=== PATIENT | male | born 1975 | race Hispanic/Latino ===

== ENCOUNTER → 2018-01-06 | Outpatient (CLI) | payer OTHER ==
--- NOTE | 2018-01-06 15:32 | Diagnostic Imaging Report ---
PROCEDURE:US RETROPERITONEAL ( KIDNEY ). COMPARISON:None. INDICATIONS:ACUTE CYSTITIS W/O HEMATURIA TECHNIQUE: Pelletier-scale and color sonographic images of the bilateral kidneys and bladder where obtained in transverse and longitudinal planes. FINDINGS: RIGHT KIDNEY: 11.7 x 6.4 x 5.4 cm, cortex 1.9 cm Cysts: None Solid masses: None Stones: None Hydronephrosis: None Echogenicity: Normal LEFT KIDNEY: 12.5 x 6.1 x 5.6 cm, cortex 2 cm Cysts: None Solid masses: None Stones: None Hydronephrosis: None Echogenicity: Normal Bladder: Both ureteral jets visualized. Unremarkable. CONCLUSION: Normal renal ultrasound exam. Dictated by: Darian Giles M.D. on 01/06/2018 at 15:32 Electronically approved by: Darian Giles M.D. on 01/06/2018 at 15:32
== END ==
LOC: US 12:05
PROVIDERS: ATTEND Family Medicine
DX: N30.00 Acute cystitis without hematuria (principal)
CPT/HCPCS: 76770

== ENCOUNTER 2020-06-04 18:07 | Emergency (ER) | payer BC, OTHER ==
[~2020-06-04] VITALS: Ht 177.8 cm; Wt 124.7 kg
--- NOTE | 2020-06-04 18:47 | Emergency Department Note ---
History of Present Illnes History of Present Illness Chief Complaint: General Medicine Complaints History of Present Illness This is a 45 year old male with right facial droop and tingling sensation since this am, denies weakness any where else . Historian: Patient Arrival Mode: Car Onset (how long ago): hour(s) (12) Location: right face Quality: weakness, tingling right face Radiation: Reports non-radiation Severity: mild Onset quality: sudden Duration (how long): hour(s) (12) Timing of current episode: constant Progression: unchanged Chronicity: new Context: Denies recent illness, Denies recent surgery, Denies trauma/injury Relieving factors: none Exacerbating factors: none Associated symptoms: Reports denies other symptoms Treatments prior to arrival: none Past Medical/Family History Physician Review I have reviewed the patient's past medical and family history. Any updates have been documented here. Past Medical History Recent Fever: No Clinical Suspicion of Infectio: No New/Unexplained Change in Ment: No Past Medical History: GERD Past Surgical History: Cholecysctectomy Other Surgery: gastric bypass Social History Smoking Cessation: Never Smoker Alcohol Use: Occasional Any Illegal Drug Use: No Physically hurt or threatened: No Family History Family history of heart diseas: No Review of Systems Review of Systems Constitutional: Reports no symptoms EENTM: Reports no symptoms Cardiovascular: Reports no symptoms Respiratory: Reports no symptoms Gastrointestinal: Reports no symptoms Genitourinary: Reports no symptoms Musculoskeletal: Reports no symptoms Integumentary: Reports no symptoms Neurological: Reports as per HPI Psychological: Reports no symptoms Endocrine: Reports no symptoms Hematological/Lymphatic: Reports no symptoms Physical Exam Related Data Allergies: Coded Allergies: No Known Drug Allergies (Verified Allergy, Mild, 12/24/09) Triage Vital Signs Vital Signs Date Time Temp Pulse Resp B/P (MAP) Pulse Ox O2 Delivery O2 Flow Rate FiO2 06/04/20 18:27 98.6 78 17 107/89 98 Room Air Vital signs reviewed: Yes Physical Exam CONSTITUTIONAL Constitutional: Present well-developed, Present well-nourished HENT HENT: Present normocephalic, Present atraumatic, Present oropharynx clear/moist, Present nose normal HENT L/R: Present left ext ear normal, Present right ext ear normal EYES Eyes: Reports PERRL, Reports conjunctivae normal NECK Neck: Present ROM normal PULMONARY Pulmonary: Present effort normal, Present breath sounds normal CARDIOVASCULAR Cardiovascular: Present regular rhythm, Present heart sounds normal, Present capillary refill normal, Present normal rate GASTROINTESTINAL Abdominal: Present soft, Present nontender, Present bowel sounds normal GENITOURINARY Genitourinary: Present exam deferred SKIN Skin: Present warm, Present dry MUSCULOSKELETAL Musculoskeletal: Present ROM normal NEUROLOGICAL Neurological: Present alert, Present oriented x 3, Present DTRs normal, Present cranial nerve deficit (right 7 th nerve, right facial palsey, forehead involved); Absent sensory deficit, Absent abnormal DTRs, Absent abnormal coordination, Absent abnormal gait PSYCHOLOGICAL Psychological: Present mood/affect normal, Present judgement normal Results Imaging Imaging results reviewed: Yes Impressions Procedure: [id number] CT/CT BRAIN WO Exam Date: 06/04/20 Exam Time: 1858 REPORT STATUS: Signed EXAMINATION: Head CT without contrast. HISTORY:Left facial droop and tingling. COMPARISON:None. TECHNIQUE: Multidetector axial images were obtained from the foramen magnum to the vertex without contrast. The images were reconstructed using brain and bone algorithms. Thin section brain images were reformatted into coronal and sagittal planes. Dose modulation, iterative reconstruction, and/or weight based adjustment of the mA/kV was utilized to reduce the radiation dose to as low as reasonably achievable. Intravenous contrast: None IMAGE QUALITY: Acceptable. FINDINGS: Skull/scalp: No lytic or blastic. lesions. No surgical changes. Parenchyma: No abnormal density. No acute hemorrhage, mass or acute major vascular territorial infarct. Arteries: No density suggestive of thrombosis. Dural sinuses: No abnormal density suggestive of thrombosis. Ventricles: No hydrocephalus or displacement. Extra-axial spaces: No abnormal density. Brain volume: Mild generalized cerebral volume loss. Craniocervical junction: No mass, Chiari malformation, or basilar invagination. Sella: No mass. Paranasal/mastoid sinuses: Imaged portions unremarkable. IMPRESSION: No acute intracranial abnormality. Mild generalized cerebral volume loss, advanced for patient's given age. Signed by: Dr. Gladys Duarte M.D. on 06/04/2020 7:43 PM Dictated By: GLADYS DUARTE MD 42 Transcribed By: GERARDO on 06/04/201942 COPY TO: DAVID GAN MD~ Assessment & Plan Medical Decision Making MDM pt with right facial droop since this am, forehead involved has apparent richmond's palsy ct brain ordered to eval for intracranial abnormality. pt discharged with valtrex 1000 mg po tid #21, medrol dose yodit as directed Assessment & Plan Final Impression: (1) Richmond palsy Depart Disposition: HOME, SELF-CARE Last Vital Signs Date Time Temp Pulse Resp B/P (MAP) Pulse Ox O2 Delivery O2 Flow Rate FiO2 06/04/20 18:27 98.6 78 17 107/89 98 Room Air DAVID GAN MD Jun 04, 2020 18:47
--- NOTE | 2020-06-04 19:46 | Diagnostic Imaging Report ---
EXAMINATION: Head CT without contrast. HISTORY:Left facial droop and tingling. COMPARISON:None. TECHNIQUE: Multidetector axial images were obtained from the foramen magnum to the vertex without contrast. The images were reconstructed using brain and bone algorithms. Thin section brain images were reformatted into coronal and sagittal planes. Dose modulation, iterative reconstruction, and/or weight based adjustment of the mA/kV was utilized to reduce the radiation dose to as low as reasonably achievable. Intravenous contrast: None IMAGE QUALITY: Acceptable. FINDINGS: Skull/scalp: No lytic or blastic. lesions. No surgical changes. Parenchyma: No abnormal density. No acute hemorrhage, mass or acute major vascular territorial infarct. Arteries: No density suggestive of thrombosis. Dural sinuses: No abnormal density suggestive of thrombosis. Ventricles: No hydrocephalus or displacement. Extra-axial spaces: No abnormal density. Brain volume: Mild generalized cerebral volume loss. Craniocervical junction: No mass, Chiari malformation, or basilar invagination. Sella: No mass. Paranasal/mastoid sinuses: Imaged portions unremarkable. IMPRESSION: No acute intracranial abnormality. Mild generalized cerebral volume loss, advanced for patient's given age. Signed by: Dr. Gladys Duarte M.D. on 06/04/2020 7:43 PM
[2020-06-04 19:52] VITALS: BP 123/82
--- OUTSIDE RECORDS SUMMARY | 2020-06-04 20:27 | XMS REPORT | Summary of Care ---
Author Author [facility] gina Organization [facility] Address Unknown Phone Unavailable Encounter HQ Arliner_vero(FIN) [id number] Date(s): 04/11/20 - 04/11/20 [facility] [place] [address] [place] [address]- Discharge Disposition: Home or Self Care Attending Physician: Luciano Allen MD Vital Signs No data available for this section Problem List Condition Effective Dates Status Health Status Informan t Anxiety(Confirmed) Resolved Back pain(Confirmed) Resolved BPH with urinary Active obstruction(Confirme d) UTI (urinary tract Resolved infection)(Confirmed ) Allergies, Adverse Reactions, Alerts Substance Reaction Severity Status busPIRone Active Medications No data available for this section Results No data available for this section Immunizations No data available for this section Procedures No data available for this section Social History Social History Type Response Alcohol Current Smoking Status Never smoker; Exposure to T obacco Smoke Unable to obtain; Cigarette Smoking Last 365 Days No; Reg Smoking Cessation Counseling No entered on: 03/24/20 Assessment and Plan No data available for this section
--- OUTSIDE RECORDS SUMMARY | 2020-06-04 20:27 | XMS REPORT | Continuity of Care Document ---
Author Author [facility] [employer] Address Unknown Phone Unavailable Care Team Providers Care Stuffed Casing Tier Name Role Phone Blink Messenger Information [employer] Unavailable Un available Problems Problem Status Onset Date Classification Date Reported Comments Source Anesthesia of skin 02/26/2019 02/28/2019 [facility] Hypo-osmolality and hyponatremia 02/26/2019 02/28/2019 [facility] Hypokalemia 02/26/2019 02/28/2019 [facility] FACIAL WEAKNESS/NUMBNESS Active 02/25/2019 [facility] N39.0 - URINARY TRACT INFECTION, SITE Active 01/30/2018 [facility] [place] Anxiety (finding) Resolved Problem 05/05/2020 [facility] Backache (finding) Resolved Problem 05/05/2020 [facility] Benign prostatic hypertroph with outflow obstruction (disorder) Active Prob richi 05/05/2020 [facility] Urinary tract infectious disease (disorder) Resolved Problem 05/05/2020 [facility] Medications Medication Details Route Status Patient Instructions Ordering Provider Order Date Source Cefuroxime 500 MG Oral Tablet [Ceftin] 500 mg = 1 tab, PO, BID, X 10 day, # 20 tab, 0 Refill(s), Pharmacy: [facility]/pharmacy #[id number], 170.18, cm, 12/22/18 10:09:00 FITTER ARMAMENT, Height, 140.909, kg, 02/25/19 19:26:00 CDT, Weight Active 05/02/2020 Medical [facility] Amoxicillin 500 MG / Clavulanate 125 MG Oral Tablet 1 tab, PO, BID, X 5 day, # 10 tab, 0 Refill(s), Pharmacy: [facility]/pharmacy #[id number], 170.18, cm, 12/22/18 10:09:00 [facility]TER ARMAMENT, Height, 140.909, kg, 02/25/19 19:26:00 CDT, Weight Active 04/16/2020 [facility] tamsulosin 0.4 mg oral capsule = 1 cap, PO, Daily, # 90 cap, 3 Refill(s), Pharmacy: [facility]/pharmacy #[id number] Active 03/24/2020 [facility] tamsulosin 0.4 mg oral capsule = 1 cap, PO, Daily, # 90 unknown unit, Refill(s) 2, [id number] Active 04/20/2019 [facility] Potassium Chloride 1.33 MEQ/ML Oral Solution Notes: (Same as: Potassium Chloride) Inactive 02/26/2019 [facility] nt Isolyte S PH-7.4 (Bolus) IV 1, 000 mL, Route: IV, ONCE, Dosing Weight 140.909 kg, Start date: 02/25/19 22:38:00 CDT, Stop date: 02/25/19 22:38:00 CDT Inactive 02/26/2019 [facility] Ondansetron 4 mg, Route: IVP, Drug form: INJ, ONCE, Dosing Weight 140.909, kg, Priority: STAT, Start date: 02/25/19 21:21:00 CDT, Stop date: 02/25/19 21:21:00 CDT Inactive 02/26/2019 [facility] nt Ativan 2 mg, Route: PO, Drug f orm: TAB, ONCE, Dosing Weight 140.909, kg, Priority: STAT, Start date: 02/25/19 21:19:00 CDT, Stop date: 02/25/19 21:19:00 CDT Inactive 02/26/2019 [facility] nter potassium phosphate-sodium phosphate 250 mg-280 mg-160 mg oral powder for reconstitution Notes: (Same as: Phos-NaK) Each 1.5 gm pkt has 250mg phosphorous. Mix w/2.5oz water and stir. Inactive 02/26/2019 [facility] Isolyte S PH-7.4 (Bolus) IV No charly: (Same as: Isolyte S PH 7.4) Inactive 02/26/2019 [facility] Magnesium Sulfate 2 gm, Route: IV, ONCE, Dosing Weight 140.909, kg, Priority: STAT, Start date: 02/25/19 21:15:00 CDT, Stop date: 02/25/19 21:15:00 CDT Inactive 02/26/2019 [facility] Potassium Chloride 1.33 MEQ/ML Oral Solution Notes: (Same as: Potassium Chloride) Inactive 02/26/2019 [facility] nter Isolyte S PH-7.4 (Bolus) IV No charly: (Same as: Isolyte S PH 7.4) Inactive 02/26/2019 [facility] Allergies, Adverse Reactions, Alerts Substance Category Reaction Severity Reaction type Status Date Reported Comments Source busPIRone Assertion Drug allergy Active [facility] Immunizations No Data Provided for This Section Results Order Name Results Value Reference Range Date Interpretation Comments Source URINE AND STOOL POC UA Color Yellow *NA* (05/02/20 8:45 AM) Yellow 05/02/2020 [facility] URINE AND STOOL POC UA Turbidity Clear *NA* (05/02/20 8:45 AM) Clear 05/02/2020 [facility] URINE AND STOOL POC UA SG 1.020 <=1.030 05/02/2020 [facility] URINE AND STOOL POC UA pH 5.0 5.0 - 8.0 05/02/2020 [facility] URINE AND STOOL POC UA Prot Negative mg/dL Negative mg/dL 05/02/2020 [facility] URINE AND STOOL POC UA Glu 100 mg/dL Negative mg/dL 05/02/2020 [facility] URINE AND STOOL POC UA Ket Negative mg/dL Negative mg/dL 05/02/2020 [facility] URINE AND STOOL POC UA Bili Negative *NA* (05/02/20 8:45 AM) Negative 05/02/2020 [facility] URINE AND STOOL POC UA Bld Small *ABN* (05/02/20 8:45 AM) Negative 05/02/2020 [facility] URINE AND STOOL POC UA Uro 0.2 0.1 - 1.0 05/02/2020 [facility] URINE AND STOOL POC UA Nit Positive *ABN* (05/02/20 8:45 AM) Negative 05/02/2020 [facility] URINE AND STOOL POC UA LeukEst Large *ABN* (05/02/20 8:45 AM) Negative 05/02/2020 [facility] URINE AND STOOL POC UA Color Yellow *NA* (03/24/20 3:35 PM) Yellow 03/24/2020 [facility] URINE AND STOOL POC UA Turbidity Clear *NA* (03/24/20 3:35 PM) Clear 03/24/2020 [facility] URINE AND STOOL POC UA SG <=1.005 *NA* (03/24/20 3:35 PM) <=1.030 03/24/2020 [facility] URINE AND STOOL POC UA pH 7.0 5.0 - 8.0 03/24/2020 [facility] URINE AND STOOL POC UA Prot Negative mg/dL Negative mg/dL 03/24/2020 [facility] URINE AND STOOL POC UA Glu Negative mg/dL Negative mg/dL 03/24/2020 [facility] URINE AND STOOL POC UA Ket Negative mg/dL Negative mg/dL 03/24/2020 [facility] URINE AND STOOL POC UA Bili Negative *NA* (03/24/20 3:35 PM) Negative 03/24/2020 [facility] URINE AND STOOL POC UA Bld Negative *NA* (03/24/20 3:35 PM) Negative 03/24/2020 [facility] URINE AND STOOL POC UA Uro 0.2 0.1 - 1.0 03/24/2020 [facility] URINE AND STOOL POC UA Nit Positive *ABN* (03/24/20 3:35 PM) Negative 03/24/2020 [facility] URINE AND STOOL POC UA LeukEst Moderate *ABN* (03/24/20 3:35 PM) Negative 03/24/2020 [facility] ELECTROLYTES Potassium Lvl 3.3 3.5 - 5.1 02/26/2019 [facility] ELECTROLYTES Chloride Lvl 96 95 - 109 02/26/2019 [facility] ELECTROLYTES Sodium Lvl 132 135 - 145 02/26/2019 [facility] ELECTROLYTES Calcium Lvl 7.6 8.5 - 10.5 02/26/2019 [facility] ELECTROLYTES AGAP 14.3 10.0 - 20.0 02/26/2019 [facility] ELECTROLYTES CO2 25 24 - 32 02/26/2019 [facility] ELECTROLYTES eGFR 119 02/26/2019 Result Comment: The eGFR is calculated using the CKD-EPI formula. In most young, healthy individuals the eGFR will be >90 mL/min/1.73m2. The eGFR declines with age. An eGFR of 60-89 may be normal in some populations, particularly the elderly, for whom the CKD-EPI formula has not been extensively validated. Use of the eGFR is not recommended in the following populations:

Individuals with unstable creatinine concentrations, including patients and those with serious co-morbid conditions.

Patients with extremes in muscle mass or diet.

The data above are obtained from the National Kidney Disease Education Program (NKDEP) which additionally recommends that when the eGFR is used in patients with extremes of body mass index for purposes of drug dosing, the eGFR should be multiplied by the estimated BMI. [facility] ELECTROLYTES Glucose Lvl 110 70 - 99 02/26/2019 [facility] ELECTROLYTES BUN 6 7 - 22 02/26/2019 [facility] ELECTROLYTES Creatinine Lvl 0.6 3 0.50 - 1.40 02/26/2019 [facility] CHEM PANEL eGFR 110 02/26/2019 Result Comment: The eGFR is calculated using the CKD-EPI formula. In most young, healthy individuals the eGFR will be >90 mL/min/1.73m2. The eGFR declines with age. An eGFR of 60-89 may be normal in some populations, particularly the elderly, for whom the CKD-EPI formula has not been extensively validated. Use of the eGFR is not recommended in the following populations:

Individuals with unstable creatinine concentrations, including patients and those with serious co-morbid conditions.

Patients with extremes in muscle mass or diet.

The data above are obtained from the National Kidney Disease Education Program (NKDEP) which additionally recommends that when the eGFR is used in patients with extremes of body mass index for purposes of drug dosing, the eGFR should be multiplied by the estimated BMI. [facility] CHEM PANEL AGAP 16.4 10.0 - 20.0 02/26/2019 [facility] CHEM PANEL Potassium Lvl 3.4 3.5 - 5.1 02/26/2019 [facility] CHEM PANEL Calcium Lvl 7.6 8.5 - 10.5 02/26/2019 [facility] CHEM PANEL Chloride Lvl 92 95 - 109 02/26/2019 [facility] CHEM PANEL Sodium Lvl 127 135 - 145 02/26/2019 [facility] CHEM PANEL Creatinine Lvl 0.76 0.50 - 1.40 02/26/2019 [facility] CHEM PANEL CO2 22 24 - 32 02/26/2019 [facility] CHEM PANEL BUN 7 7 - 22 02/26/2019 [facility] CHEM PANEL Glucose Lvl 141 70 - 99 02/26/2019 [facility] CHEM PANEL Phosphorus 2.4 2.5 - 4.5 02/26/2019 [facility] CHEM PANEL Magnesium Lvl 1.4 1.8 - 2.4 02/26/2019 [facility] HEMATOLOGY MPV 7.9 7.4 - 10.4 02/26/2019 [facility] HEMATOLOGY Platelet 266 133 - 450 02/26/2019 [facility] HEMATOLOGY RDW 14.4 11.5 - 14.5 02/26/2019 [facility] HEMATOLOGY WBC 9.0 3.7 - 10.4 02/26/2019 [facility] HEMATOLOGY Hgb 14.1 14.0 - 18.0 02/26/2019 [facility] HEMATOLOGY Hct 40.7 42.0 - 54.0 02/26/2019 [facility] HEMATOLOGY RBC 4.82 4.70 - 6.10 02/26/2019 [facility] HEMATOLOGY MCHC 34.7 32.0 - 36.0 02/26/2019 [facility] HEMATOLOGY MCV 84.4 80.0 - 94.0 02/26/2019 [facility] HEMATOLOGY MCH 29.3 27.0 - 31.0 02/26/2019 [facility] IMMUNOLOGY CDC HIV 4th GEN Negat joy *NA* (02/25/19 7:49 PM) Negative 02/26/2019 [facility] Pathology Reports No Data Provided for This Section Diagnostic Reports No Data Provided for This Section Consultation Notes No Data Provided for This Section Discharge Summaries No Data Provided for This Section History and Physicals No Data Provided for This Section Vital Signs Vital Sign Value Date Comments Source Systolic (mm Hg) 138 02/26/2019 [facility] Diastolic (mm Hg) 78 02/26/2019 [facility] Respitory Rate 18 02/26/2019 [facility] Temperature Oral (F) 98 F 02/26/2019 [facility] Temperature Oral (F) 97.6 F 02/26/2019 [facility] Respitory Rate 17 02/26/2019 [facility] Systolic (mm Hg) 148 02/26/2019 [facility] Diastolic (mm Hg) 72 02/26/2019 [facility] Respitory Rate 18 02/26/2019 [facility] Systolic (mm Hg) 152 02/26/2019 [facility] Diastolic (mm Hg) 88 02/26/2019 [facility] Heart Rate 88 02/26/2019 [facility] Weight 140.909 02/26/2019 [facility] Temperature Oral (F) 97.6 F 02/26/2019 [facility] Heart Rate 99 02/26/2019 [facility] Encounters Location Location Details Encounter Type Encounter Number Reason For Visit Attending Provider ADM Date DC Date Status Source Outpatient [id number] JOCELYNE YOSSI 12/07/2018 Active [facility] Outpatient [id number] JOCELYNE YOSSI 12/22/2018 Active [facility] Outpatient [id number] MA VISIT 02/02/2019 [facility] Outpatient [id number] JOCELYNE YOSSI 02/05/2019 [facility] Emergency [id number] Adrian Abdi 02/26/2019 02/26/2019 [facility] Outpatient [id number] Jocelyne Yossi 02/26/2019 [facility] Outpatient [id number] Jocelyne Yossi 02/26/2019 02/27/2019 [facility] Between Visit [id number] 04/20/2019 04/21/2019 [facility] Outpatient [id number] Jocelyne Yossi 03/24/2020 [facility] [id number] Jocelyne Yossi 03/24/2020 03/25/2020 [facility] Outpatient [id number] MED_ASST VISIT 04/11/2020 [facility] [id number] Jocelyne Yossi 04/11/2020 04/12/2020 [facility] Between Visit [id number] 04/16/2004/17/2020 [facility] Outpatient [id number] Jocelyne Yossi 05/02/2020 Active [facility] Outpatient [id number] MED_ASST VISIT 05/02/2020 [facility] [id number] Jocelyne Yossi 05/02/2020 05/03/2020 [facility] Outpatient [id number] Jocelyne Allen 05/16/2020 Active [facility] Outpatient [id number] MED_ASST VISIT 05/16/2020 Active [facility] Outpatient [id number] NURSE VISIT 06/03/2020 Active [facility] Outpatient [id number] Jocelyne Allen 06/27/2020 Active [facility] Procedures Procedure Code Date Perfomer Comments Source Measurement of post-voiding residual uri ne and/or bladder capacity by ultrasound, non-imaging 58202 02/26/2019 [facility] Complex uroflowmetry (eg, calibrated ortiz ctronic equipment) [id number] 02/26/2019 [facility] Assessment and Plan No Data Provided for This Section Plan of Care No Data Provided for This Section Social History Social History Date Source Social History TypeResponse Alcohol Current Smoking Status Never smoker; Exposure to Tobacco Smoke Unable to obtain; Cigarette Smoking Last 365 Days No; Reg Smoking Cessation Counseling No entered on: 05/02/20 11/30/2018 [facility] Social History TypeResponse Alcohol Current Smoking Status Never smoker; Exposure to Tobacco Smoke Unable to obtain; Cigarette Smoking Last 365 Days No; Reg Smoking Cessation Counseling No entered on: 02/26/19 11/30/2018 [facility] Family History No Data Provided for This Section Advance Directives No Data Provided for This Section Functional Status No Data Provided for This Section
--- OUTSIDE RECORDS SUMMARY | 2020-06-04 20:27 | XMS REPORT | Summary of Care ---
Author Author [facility] gina Organization [facility] gina Address Unknown Phone Unavailable Encounter HQ Balbina_vero(FIN) [id number] Date(s): 04/20/19 - 04/21/19 [facility] [place] [address] [address] [place] [address]- Vital Signs No data available for this section Problem List Condition Effective Dates Status Health Status Informan t Anxiety(Confirmed) Resolved Back pain(Confirmed) Resolved BPH with urinary Active obstruction(Confirme d) UTI (urinary tract Resolved infection)(Confirmed ) Allergies, Adverse Reactions, Alerts Substance Reaction Severity Status busPIRone Active Medications tamsulosin 0.4 mg oral capsule = 1 cap, PO, Daily, # 90 unknown unit, Refill(s) 2, Pharmacy: [id number] Start Date: 04/20/19 Status: Ordered Results No data available for this section Immunizations No data available for this section Procedures No data available for this section Social History Social History Type Response Alcohol Current Smoking Status Never smoker; Exposure to T obacco Smoke Unable to obtain; Cigarette Smoking Last 365 Days No; Reg Smoking Cessation Counseling No entered on: 02/26/19 Assessment and Plan No data available for this section
--- OUTSIDE RECORDS SUMMARY | 2020-06-04 20:27 | XMS REPORT | Summary of Care ---
Author Author [facility] gina Organization [facility] gina Address Unknown Phone Unavailable Encounter CARMELITA Gonzalez(FIN) [id number] Date(s): 05/02/20 - 05/02/20 [facility] [place] [address] [place] [address] [place] [address]- Discharge Disposition: Home or Self Care Attending Physician: Luciano Allen MD Vital Signs No data available for this section Problem List Condition Effective Dates Status Health Status Informan t Anxiety(Confirmed) Resolved Back pain(Confirmed) Resolved BPH with urinary Active obstruction(Confirme d) UTI (urinary tract Resolved infection)(Confirmed ) Allergies, Adverse Reactions, Alerts Substance Reaction Severity Status busPIRone Active Medications Ceftin 500 mg oral tablet 500 mg = 1 tab, PO, BID, X 10 day, # 20 tab, 0 Refill(s), Pharmacy: [facility] #[id number], 170.18, cm, 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, Height, 140.909, kg, 02/25/19 19:26:00 CDT, Weight Start Date: 05/02/20 Stop Date: 05/12/20 Status: Ordered Results Most recent to 1 oldest [Reference Range]: POC UA Bili Negative [Negative] *NA* (05/02/20 8:45 AM) POC UA Bld Small [Negative] *ABN* (05/02/20 8:45 AM) POC UA Color Yellow [Yellow] *NA* (05/02/20 8:45 AM) POC UA Glu [Negative 100 mg/dL mg/dL] *NA* (05/02/20 8:45 AM) POC UA Ket [Negative Negative mg/dL mg/dL] *NA* (05/02/20 8:45 AM) POC UA LeukEst Large [Negative] *ABN* (05/02/20 8:45 AM) POC UA Nit Positive [Negative] *ABN* (05/02/20 8:45 AM) POC UA pH [5.0-8.0] 5.0 (05/02/20 8:45 AM) POC UA Prot Negative mg/dL [Negative mg/dL] *NA* (05/02/20 8:45 AM) POC UA SG [<=1.030] 1.020 (05/02/20 8:45 AM) POC UA Turbidity Clear [Clear] *NA* (05/02/20 8:45 AM) POC UA Uro [0.1-1.0 0.2 EU/dL EU/dL] (05/02/20 8:45 AM) Immunizations No data available for this section Procedures No data available for this section Social History Social History Type Response Alcohol Current Smoking Status Never smoker; Exposure to T obacco Smoke Unable to obtain; Cigarette Smoking Last 365 Days No; Reg Smoking Cessation Counseling No entered on: 05/02/20 Assessment and Plan No data available for this section
--- OUTSIDE RECORDS SUMMARY | 2020-06-04 20:27 | XMS REPORT | Continuity of Care Document ---
Author Author [facility] t Organization 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 Name Role Phone Christiano GAN Attphys Unavailable Jaswinder Allen Attphys Jaswinder Abdi Attphys AIRAM HUDSON Attphys Unavailable Problems Condition Name Condition Details Condition Category Status Onset Date Resolution Date Last Treatment Date Treating Clinician Comments Source FACIAL WEAKNESS/NUMBNESS FACI AL WEAKNESS/NUMBNESS Active 02/25/2019 [facility] Diagnosis Active 2019-02-25 00:00:00 2019-02-26 10:15:00 Brandyn Rice N39.0 - URINARY TRACT INFECTION, SITE N39.0 - URINARY TRACT INFECTION, SITE Active 01/30/2018 [facility] Diagnosis Active 2018-01-30 00:01:00 2018-04-04 21:21:00 M emobeny Rice Anxiety (finding) Anxi ety (finding) Resolved Problem 05/05/2020 [facility] Problem Resolved 2020-05-05 00:06:27 Brandyn Rice Backache (finding) Back ache (finding) Resolved Problem 05/05/2020 [facility] Problem Resolved 2020-05-05 00:06:27 Brandyn Rice Urinary tract infectious disease (disorder) Urinary tract infectious disease (disorder) Resolved Problem 05/05/2020 [facility] Problem Resolved 2020-05-05 00:06:27 Brandyn Rice Benign prostatic hypertroph with outflow obstruction ( disorder) Benign prostatic hypertroph with outflow obstruction (disorder) Active Problem 05/05/2020 [facility] Problem Active 2020-05-05 00:06:27 Brandyn Rice Anesthesia of skin Anes thesia of skin 02/26/2019 02/28/2019 [facility] Problem 2019-02-26 17:00:00 2019-02 23:08:36 2019-02-28 23:08:36 [facility] Hypo-osmolality and hyponatremia Hypo-osmolality and hyponatremia 02/26/2019 02/28/2019 [facility] Problem 2019-02-26 17:00:00 2019-02-28 23:08:36 2019-02-28 23:08:36 M racquel Rice Hypokalemia Hypo kalemia 02/26/2019 02/28/2019 [facility] Problem 2019-02-26 17:00:00 2019-02 23:08:36 2019-02-28 23:08:36 [facility] Allergies, Adverse Reactions, Alerts Allergy Name Allergy Type Status Severity Reaction(s) Onset Date Inacti ve Date Treating Clinician Comments Source busPIRone busPIRone Active Prieto rufuschristiano Rice Social History Social Habit Start Date Stop Date Quantity Comments Source Social History 2018-11-30 15:49:01 2018-11-30 15:49:01 [facility] Medications Ordered Medication Name Filled Medication Name Start Date Stop Da te Current Medication? 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, Height, 140.909, kg, 02/25/19 19:26:00 CDT, Weight [facility] Amoxicillin 500 MG / Clavulanate 125 MG Oral Tablet 04-16 15:32:00 Yes 1 tab, PO, BID, X 5 day, # 10 tab, 0 Refill(s), Pharmacy: [facility]/pharmacy #[id number], 170.18, cm, 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[employer], Height, 140.909, kg, 02/25/19 19:26:00 CDT, Weight [facility] tamsulosin 0.4 mg oral capsule 2020-03-24 21:01:00 Yes = 1 cap, PO, Daily, # 90 cap, 3 Refill(s), Pharmacy: [facility]/pharmacy #[id number] Brandyn Rice tamsulosin 0.4 mg oral capsule 2019-04-20 16:47:20 Yes = 1 cap, PO, Daily, # 90 unknown unit, Refill(s) 2, Pharmacy: [facility]/pharmacy #[id number] Brandyn Rice Potassium Chloride 1.33 MEQ/ML Oral Solution 2019-02-26 06:49:00 No Notes: (Same as: Potassium Chloride) [facility] silvia Rice Isolyte S PH-7.4 (Bolus) IV 2019-02-26 03:38:00 No 1,000 mL, Route: IV, ONCE, Dosing Weight 140.909 kg, Start date: 02/25/19 22:38:00 CDT, Stop date: 02/25/19 22:38:00 CDT Brandyn [place] Ondansetron 2019-02-26 02:21:00 No 4 mg, Route: IVP, Drug form: INJ, ONCE, Dosing Weight 140.909, kg, Priority: STAT, Start date: 02/25/19 21:21:00 CDT, Stop date: 02/25/19 21:21:00 CDT Ca stefano Rice Ativan 2019-02-26 02:19:00 No 2 mg, Route: PO, Drug form: TAB, ONCE, Dosing Weight 140.909, kg, Priority: STAT, Start date: 02/25/19 21:19:00 CDT, Stop date: 02/25/19 21:19:00 CDT Pola Rice potassium phosphate-sodium phosphate 250 mg-280 mg-160 mg oral powder for reconstitution 2019-02-26 02:18:00 No Notes: (Same as: Phos-NaK) Each 1.5 gm pkt has 250mg phosphorous. Mix w/2.5oz water and stir. Brandyn Rice Isolyte S PH-7.4 (Bolus) IV 2019-02-26 02:17:00 No Notes: (Same as: Isolyte S PH 7.4) Brandyn Rice Magnesium Sulfate 2019-02-26 02:15:00 No 2 gm, Route: IV, ONCE, Dosing Weight 140.909, kg, Priority: STAT, Start date: 02/25/19 21:15:00 CDT, Stop date: 02/25/19 21:15:00 CDT [facility] [place] Potassium Chloride 1.33 MEQ/ML Oral Solution 2019-02-26 02:10:00 No Notes: (Same as: Potassium Chloride) [facility] [place] Isolyte S PH-7.4 (Bolus) IV 2019-02-26 01:34:00 No Notes: (Same as: Isolyte S PH 7.4) [facility] Vital Signs Vital Name Observation Time Observation Value Comments Source Systolic (mm Hg) 2019-02-26 07:20:00 Prieto [facility] [place] Diastolic (mm Hg) 2019-02-26 07:20:00 [facility] [place] Respitory Rate 2019-02-26 07:20:00 [facility] [place] Temperature Oral (F) 2019-02-26 07:20:00 98 F [facility] [place] Temperature Oral (F) 2019-02-26 04:00:00 97.6 F [facility] [place] Respitory Rate 2019-02-26 04:00:00 [facility] [place] Systolic (mm Hg) 2019-02-26 04:00:00 Prieto [facility] [place] Diastolic (mm Hg) 2019-02-26 04:00:00 [facility] [place] Respitory Rate 2019-02-26 03:00:00 [facility] [place] Systolic (mm Hg) 2019-02-26 03:00:00 Prieto [facility] [place] Diastolic (mm Hg) 2019-02-26 03:00:00 [facility] [place] Heart Rate 2019-02-26 02:00:00 [facility] [place] Weight 2019-02-26 00:26:00 [facility] [place] Temperature Oral (F) 2019-02-26 00:26:00 97.6 F [facility] [place] Heart Rate 2019-02-26 00:26:00 [facility] Procedures Procedure Date / Time Performed Performing Clinician [facility] e Measurement of post-voiding residual uri ne and/or bladder capacity by ultrasound, non-imaging 2019-02-26 20:40:00 [facility] uroflowmetry (eg, calibrated electronic equipment) 2 20:40:00 [facility] Encounters Start Date/Time End Date/Time Encounter Type Admission Type Attendi [facility] Care Department Encounter ID Source 2020-05-02 08:30:00 2020-05-02 23:59:59 Outpatient Luciano Allen [facility] [id number] 2020-04-16 10:30:46 2020-04-17 10:30:46 Outpatient [facility] [id number] 2020-04-11 11:15:00 2020-04-11 23:59:59 Outpatient Luciano Allen [facility] [id number] 2020-03-24 15:40:00 2020-03-24 23:59:59 Outpatient Luciano Allen [facility] [id number] 2019-04-20 11:47:16 2019-04-21 11:47:16 Outpatient [facility] [id number] 2019-02-26 15:40:00 2019-02-26 23:59:59 Outpatient Luciano Allen [facility] [id number] 2019-02-25 19:19:21 2019-02-26 02:40:00 Outpatient Sa trever Abdi [facility] [id number] 2019-02-25 19:19:00 2019-02-25 19:19:00 Emergency [facility] [address] [facility] Results Test Description Test Time Test Comments Results Result Comments Source CT BRAIN WO 2020-06-04 19:34:00 [place] [address] Patient Name: DANDY AYON MR #: [id number] : 1975 Age/Sex: 45/M Req #: [id number] [facility] Physician: Ordered by: DAVID GAN MD Report #: [id number] Location: ER Room/Bed: Procedure: [id number] CT/CT BRAIN WO Exam Date: 06/04/20 Exam Time: 1858 REPORT STATUS: Signed EXAMINATION: Head CT without contrast. HISTORY:Left facial droop and tingling. COMPARISON:None. TECHNIQUE: Multidetector axial images were obtained from the foramen magnum to the vertex without contrast. The images were reconstructed using brain and bone algorithms. Thin section brain images were reformatted into coronal and sagittal planes. Dose modulation, iterative reconstruction, and/or weight based adjustment of the mA/kV was utilized to reduce the radiation dose to as low as reasonably achievable. Intravenous contrast: None IMAGE QUALITY: Acceptable. FINDINGS: Skull/scalp: No lytic or blastic. lesions. No surgical changes. Parenchyma: No abnormal density. No acute hemorrhage, mass or acute major vascular territorial infarct. Arteries: No density suggestive of thrombosis. Dural sinuses: No abnormal density suggestive of thrombosis. Ventricles: No hydrocephalus or displacement. Extra-axial spaces: No abnormal density. Brain volume: Mild generalized cerebral volume loss. Craniocervical junction: No mass, Chiari malformation, or basilar invagination. Sella: No mass. Paranasal/mastoid sinuses: Imaged portions unremarkable. IMPRESSION: No acute intracranial abnormality. Mild generalized cerebral volume loss, advanced for patient's given age. Signed by: Dr. Gladys Duarte M.D. on 06/04/2020 7:43 PM Dictated By: GLADYS DUARTE MD 42 Transcribed By: GERARDO on 06/04/201942 COPY TO: DAVID GAN MD URINE AND STOOL 2020-05-02 13:45:00 Yellow *NA*(05/02/20 8: 45 AM) [facility] URINE AND STOOL 2020-05-02 13:45:00 Clear *NA*(05/02/20 8:4 5 AM) [facility] [place] URINE AND STOOL 2020-05-02 13:45:00 Test Item POC UA SG (test code = POC UA SG) 1.020 1 [facility] [id number] 13:45:00* Test Item Value Reference Range Interpretation Comments POC UA pH (test code = POC UA pH) 5.0 1 5.0-8.0 [facility] [id number] 13:45:00Negative *NA*(05/02/20 8:45 AM) [facility] [id number] 13:45:00Small *ABN*(05/02/20 8:45 AM) [facility] [id number] 13:45:000.2[facility] [id number] 13:45:00Positive *ABN*(05/02/20 8:45 AM)[facility] [id number] 13:45:00Large *ABN*(05/02/20 8:45 AM)[facility] [id number] 20:35:00Yellow *NA*(03/24/20 3:35 PM)[facility] [id number] 20:35:00Clear *NA*(03/24/20 3:35 PM)[facility] [id number] 20:35:00<=1.005 *NA*(03/24/20 3:35 PM)[facility] [id number] 20:35:00* Test Item Value Reference Range Interpretation Comments POC UA pH (test code = POC UA pH) 7.0 1 5.0-8.0 [facility] [id number] 20:35:00Negative *NA*(03/24/20 3:35 PM) [facility] [id number] 20:35:00Negative *NA*(03/24/20 3:35 PM) [facility] [id number] 20:35:000.2[facility] [id number] 20:35:00Positive *ABN*(03/24/20 3:35 PM)[facility] FROJD7628-06-75 20:35:00Moderate *ABN*(03/24/20 3:35 PM)[facility] UBASYWTKTKXQ2605-24-53 06:20:003.3[facility] JuouxauJLJXEALUJUVI2760-52-94 06:20:0096[facility] AtyjntcYKKAIUKPUPNB7148-41-25 06:20:53[address]Rpafkith [address] TYVKCBMDDWSX5836-25-58 06:20:007.6[facility] AkvekshJSGLGSYOGXMH3714-50-27 06:20:0014.3[facility] WiudukpDSOITGBUWIKA8647-62-97 06:20:0025[facility] [place] GIZWZYCBMKIT7814-95-39 06:20:74534Qusgtxkt QzcvxqyZHBMXHWXOMNK4608-36-00 06:20:45718Nacziwnw FxgnoeeIXNODABGQVCM2637-67-48 06:20:006[facility] HXPTJEIFSNIS5912-36-50 06:20:000.63[facility]annCHE[facility] CXOHK0979-96-86 00:49:00 110[facility]ann[facility] KXLFU6548-77-01 00:49:0016.4[facility]annCHEM PANEL 2019-02-26 00:49:003.4[facility]ann[facility] GCNFI1812-86-94 00:49:007.6[facility]ann[facility] QBNIG8453-31-36 00:49:0092[facility]annCHE[facility] JEWQX8720-12-68 00:49:04014Sgxxkffw HermannCHEM SEEFQ6431-99-91 00:49:000.76[facility]ann[facility] TELRD0421-17-78 00:49:0022[facility]ann[facility] KWYCV0633-46-04 00:49:007 [facility] UZJDF9461-70-06 00:49:65442Nfpaccnb HermannCHEM PANEL 2019-02-26 00:49:002.4[facility] HermannCHEM WANRE4887-02-50 00:49:001.4[facility] RohnetjCEDVOHULWS5388-75-54 00:49:007.9[facility] ShewvvxEDBYPTJVOB9625-95-31 00:49:67100Nkvicipc KwpvggtAFAPWTFGGP4272-11-96 00:49:0014.4[facility] [place] GUVUNJEXGG0708-89-69 00:49:009.0[facility] TtslsgaCRESCOCPOL3708-52-25 00:49:00 14.1[facility]orial SgogktaCBLIQYASNV8455-43-92 00:49:0040.7[facility] HermannHEMATOLOGY 2019-02-26 00:49:004.82Memorial JyznethYVSXCAJHEM2895-88-08 00:49:0034.7Memorimi OmprzwmUQHGPAMZJQ1012-31-45 00:49:0084.4Mem[facility]imi JsxpdpqZCLXNLEAFG9324-58-10 00:49:00* Test Item Value Reference Range Interpretation Comments MCH (test code = MCH) 29.3 pg 27.0-31.0 [facility] CenterZknozzyZMHULEOQIT7987-14-03 00:49:00Negative *NA*(02/25/19 7:49 PM) [facility] RENAL RETROPERITONEAL COMP [place] [address] Patient Name: DANDY AYON MR #: [id number] : 1975 Age/Sex: 42/M Req #: [id number] Adm Physician: Ordered by: AIRAM HUDSON DO Report #: [id number] Location: Room/Bed: Procedure: [id number] US/US RENAL RETROPERITONEAL COMP Exam Date: 01/06/18 Exam Time: [address] ATUS: Signed PROCEDURE: US RETROPERITONEAL ( KIDNEY ). COMPARISON: None . INDICATIONS: ACUTE CYSTITIS W/O HEMATURIA TECHNIQUE: Pelletier-scale and colo r sonographic images of the bilateral kidneys and bladder where obtained in t ransverse and longitudinal planes. FINDINGS: RIGHT KIDNEY: 11. 7 x 6.4 x 5.4 cm, cortex 1.9 cm Cysts: None Solid masses: None Stones: Non e Hydronephrosis: None Echogenicity: Normal LEFT KIDNEY: 12.5 x 6.1 x 5.6 cm, cortex 2 cm Cysts: None Solid masses: None Stones: None Hydronep hrosis: None Echogenicity: Normal Bladder: Both ureteral jets visualized . Unremarkable. CONCLUSION: Normal renal ultrasound exam. Dictated by: Darian Garcia M.D. on 01/06/2018 at 15:32 Electron ically approved by: Darian Garcia M.D. on 01/06/2018 at 15:32 Dictated By: DARIAN GARCIA MD [id number] COPY TO: AIRAM HUDSON DO
--- OUTSIDE RECORDS SUMMARY | 2020-06-04 20:27 | XMS REPORT | Summary of Care ---
Author Author [facility] ton Organization [facility] [place] Address Unknown Phone Unavailable Encounter HQ Richntr_vero(FIN) [id number] Date(s): 03/24/20 - 03/24/20 [facility] [place] [address] [place] [address] [place] [address]- Discharge Disposition: Home or Self Care Attending [...] Daily, # 90 cap, 3 Refill(s), Pharmacy: [facility]/pharmacy #[id number] Start Date: 03/24/20 Status: Ordered Results Most recent to 1 oldest [Reference Range]: POC UA Bili Negative [Negative] *NA* (03/24/20 3:35 PM) POC UA Bld Negative [Negative] *NA* (03/24/20 3:35 PM) POC UA Color Yellow [Yellow] *NA* (03/24/20 3:35 PM) POC UA Glu [Negative Negative mg/dL mg/dL] *NA* (03/24/20 3:35 PM) POC UA Ket [Negative Negative mg/dL mg/dL] *NA* (03/24/20 3:35 PM) POC UA LeukEst Moderate [Negative] *ABN* (03/24/20 3:35 PM) POC UA Nit Positive [Negative] *ABN* (03/24/20 3:35 PM) POC UA pH [5.0-8.0] 7.0 (03/24/20 3:35 PM) POC UA Prot Negative mg/dL [Negative mg/dL] *NA* (03/24/20 3:35 PM) POC UA SG [<=1.030] <=1.005 *NA* (03/24/20 3:35 PM) POC UA Turbidity Clear [Clear] *NA* (03/24/20 3:35 PM) POC UA Uro [0.1-1.0 0.2 EU/dL EU/dL] (03/24/20 3:35 PM) Immunizations No data available for this section [...]
--- OUTSIDE RECORDS SUMMARY | 2020-06-04 20:27 | XMS REPORT | Summary of Care ---
Author Author [facility] Organization [facility] Address Unknown Phone Unavailable Encounter CARMELITA Gonzalez([place]) [id number] Date(s): 02/25/19 - 02/26/19 [facility] [id number] [employer] provided by [employer] [facility] [place] [address]- Encounter Diagnosis Numbness and tingling (Discharge Diagnosis) - 02/26/19 Hyponatremia (Discharge Diagnosis) - 02/26/19 Hypokalemia (Discharge Diagnosis) - 02/26/19 Discharge Disposition: Home or Self Care Attending Physician: Adrian Abdi MD Vital Signs 1 2 3 Most recent to oldest [Reference Range]: 98 DegF (02/26/19 2:20 AM) 97.6 DegF (02/25/19 11:00 PM) 97.6 DegF (02/25/19 7:26 PM) Temperature Oral [96.4-99.1 DegF] 138/78 mmHg (02/26/19 2:20 AM) 148/72 mmHg *HI* (02/25/19 11:00 PM) 152/88 mmHg *HI* (02/25/19 10:00 PM) Blood Pressure [90-140/60-90 mmHg] 18 BRMIN (02/26/19 2:20 AM) 17 BRMIN (02/25/19 11:00 PM) 18 BRMIN (02/25/19 10:00 PM) Respiratory Rate [14-20 BRMIN] 88 bpm (02/25/19 9:00 PM) 99 bpm (02/25/19 7:26 PM) Peripheral Pulse Rate [60-100 bpm] 140.909 kg (02/25/19 7:26 PM) Weight Problem List Condition Effective Dates Status Health Status Informan t Anxiety(Confirmed) Resolved Back pain(Confirmed) Resolved BPH with urinary Active obstruction(Confirme d) UTI (urinary tract Resolved infection)(Confirmed ) Allergies, Adverse Reactions, Alerts Substance Reaction Severity Status busPIRone Active Medications Ativan 2 mg, Route: PO, Drug form: TAB, ONCE, Dosing Weight 140.909, kg, Priority: STAT , Start date: 02/25/19 21:19:00 CDT, Stop date: 02/25/19 21:19:00 CDT Start Date: 02/25/19 Stop Date: 02/25/19 Status: Completed Isolyte S PH-7.4 (Bolus) IV 1,000 mL, Route: IV, ONCE, Dosing Weight 140.909 kg, Start date: 02/25/19 22:38: 00 CDT, Stop date: 02/25/19 22:38:00 CDT Start Date: 02/25/19 Stop Date: 02/25/19 Status: Completed Isolyte S PH-7.4 (Bolus) IV 1,000 mL, 1000 ml/hr, Infuse Over: 1 hr, Route: IV, 1,000, Drug form: SOLN, ONCE , Dosing Weight 140.909 kg, Start date: 02/25/19 20:34:00 CDT, Stop date: 20:34:00 CDT Notes: (Same as: Isolyte S PH 7.4) Start Date: 02/25/19 Stop Date: 02/25/19 Status: Completed Isolyte S PH-7.4 (Bolus) IV 1,000 mL, Route: IV, Drug form: SOLN, ONCE, Dosing Weight 140.909 kg, Start date : 02/25/19 21:17:00 CDT, Stop date: 02/25/19 21:17:00 CDT Notes: (Same as: Isolyte S PH 7.4) Start Date: 02/25/19 Stop Date: 02/25/19 Status: Completed magnesium sulfate 2 gm, Route: IV, ONCE, Dosing Weight 140.909, kg, Priority: STAT, Start date: 21:15:00 CDT, Stop date: 02/25/19 21:15:00 CDT Start Date: 02/25/19 Stop Date: 02/25/19 Status: Completed ondansetron 4 mg, Route: IVP, Drug form: INJ, ONCE, Dosing Weight 140.909, kg, Priority: STA T, Start date: 02/25/19 21:21:00 CDT, Stop date: 02/25/19 21:21:00 CDT Start Date: 02/25/19 Stop Date: 02/25/19 Status: Completed potassium chloride 20 mEq/15 mL oral liquid 40 mEq, 30 mL, Route: PO, Drug form: LIQ, ONCE, Dosing Weight 140.909, kg, Prior ity: STAT, Start date: 02/26/19 1:49:00 CDT, Stop date: 02/26/19 1:49:00 CDT Notes: (Same as: Potassium Chloride) Start Date: 02/26/19 Stop Date: 02/26/19 Status: Completed potassium chloride 20 mEq/15 mL oral liquid 40 mEq, 30 mL, Route: PO, Drug form: LIQ, ONCE, Dosing Weight 140.909, kg, Prior ity: STAT, Start date: 02/25/19 21:10:00 CDT, Stop date: 02/25/19 21:10:00 CDT Notes: (Same as: Potassium Chloride) Start Date: 02/25/19 Stop Date: 02/25/19 Status: Completed potassium phosphate-sodium phosphate 250 mg-280 mg-160 mg oral powder for recons titution 2 pkt, Route: PO, Drug Form: PDR/REC, Dosing Weight 140.909, kg, ONCE, Start aman e: 02/25/19 21:18:00 CDT, Stop date: 02/25/19 21:18:00 CDT Notes: (Same as: Phos-NaK) Each 1.5 gm pkt has 250mg phosphorous. Mix w/2.5oz w ater and stir. Start Date: 02/25/19 Stop Date: 02/25/19 Status: Completed Results Most recent to 1 2 oldest [Reference Range]: CDC HIV 4th GEN Negative [Negative] *NA* (02/25/19 7:49 PM) eGFR 119 mL/min/1.73m2 1 110 mL/min/1.73m2 2 *NA* *NA* (02/26/19 1:20 AM) (02/25/19 7:49 PM) AGAP [10.0-20.0 14.3 mEq/L 16.4 mEq/L mEq/L] (02/26/19 1:20 AM) (02/25/19 7:49 PM) BUN [7-22 mg/dL] 6 mg/dL 7 mg/dL *LOW* (02/25/19 7:49 PM) (02/26/19 1:20 AM) Calcium Lvl 7.6 mg/dL 7.6 mg/dL [8.5-10.5 mg/dL] *LOW* *LOW* (02/26/19 1:20 AM) (02/25/19 7:49 PM) Chloride Lvl [95-109 96 mEq/L 92 mEq/L mEq/L] (02/26/19 1:20 AM) *LOW* (02/25/19 7:49 PM) CO2 [24-32 mEq/L] 25 mEq/L 22 mEq/L (02/26/19 1:20 AM) *LOW* (02/25/19 7:49 PM) Creatinine Lvl 0.63 mg/dL 0.76 mg/dL [0.50-1.40 mg/dL] (02/26/19 1:20 AM) (02/25/19 7:49 PM) Glucose Lvl [70-99 110 mg/dL 141 mg/dL mg/dL] *HI* *HI* (02/26/19 1:20 AM) (02/25/19 7:49 PM) Hct [42.0-54.0 %] 40.7 % *LOW* (02/25/19 7:49 PM) Hgb [14.0-18.0 g/dL] 14.1 g/dL (02/25/19 7:49 PM) Potassium Lvl 3.3 mEq/L 3.4 mEq/L [3.5-5.1 mEq/L] *LOW* *LOW* (02/26/19 1:20 AM) (02/25/19 7:49 PM) MCH [27.0-31.0 pg] 29.3 pg (02/25/19 7:49 PM) MCHC [32.0-36.0 34.7 g/dL g/dL] (02/25/19 7:49 PM) MCV [80.0-94.0 fL] 84.4 fL (02/25/19 7:49 PM) Magnesium Lvl 1.4 mg/dL [1.8-2.4 mg/dL] *LOW* (02/25/19 7:49 PM) MPV [7.4-10.4 fL] 7.9 fL (02/25/19 7:49 PM) Sodium Lvl [135-145 132 mEq/L 127 mEq/L mEq/L] *LOW* *LOW* (02/26/19 1:20 AM) (02/25/19 7:49 PM) Phosphorus [2.5-4.5 2.4 mg/dL mg/dL] *LOW* (02/25/19 7:49 PM) Platelet [133-450 266 K/CMM K/CMM] (02/25/19 7:49 PM) RBC [4.70-6.10 4.82 M/CMM M/CMM] (02/25/19 7:49 PM) RDW [11.5-14.5 %] 14.4 % (02/25/19 7:49 PM) WBC [3.7-10.4 K/CMM] 9.0 K/CMM (02/25/19 7:49 PM) 1Result Comment: The eGFR is calculated using the [...] from the National Kidney Disease Education Program ( NKDEP) which additionally recommends that when the eGFR is used in patients with extremes of body mass index for purposes of drug dosing, the eGFR should be mul tiplied by the estimated BMI. 2Result Comment: The eGFR is calculated using the [...] from the National Kidney Disease Education Program ( NKDEP) which additionally recommends that when the eGFR is used in patients with extremes of body mass index for purposes of drug dosing, the eGFR should be mul tiplied by the estimated BMI. Immunizations No data available for this section [...]
--- OUTSIDE RECORDS SUMMARY | 2020-06-04 20:27 | XMS REPORT | Summary of Care ---
Author Author [facility] Organization [facility] Address Unknown Phone Unavailable Encounter HQ Arliner_vero(FIN) [id number] Date(s): 02/26/19 - 02/26/19 [facility] [place] [id number] [place] [id number]- Discharge Disposition: Home or Self Care Attending Physician: Luciano Allen MD Vital Signs No data available for this section Problem List Condition Effective Dates Status Health Status Informan t Anxiety(Confirmed) Resolved Back pain(Confirmed) Resolved BPH with urinary Active obstruction(Confirme d) UTI (urinary tract Resolved infection)(Confirmed ) Allergies, Adverse Reactions, Alerts Substance Reaction Severity Status busPIRone Active Medications No Known Medications Results No data available for this section Immunizations No data available for this section Procedures Procedure Date Related Diagnosis Body Site Status Complex uroflowmetry (eg, calibrated 02/26/19 C ompleted electronic equipment) Measurement of post-voiding residual urine 02/26/19 Completed and/or bladder capacity by ultrasound, non-imaging Social History Social History Type Response Alcohol Current Smoking Status Never smoker; Exposure to T obacco Smoke Unable to obtain; Cigarette Smoking Last 365 Days No; Reg Smoking Cessation Counseling No entered on: 02/26/19 Assessment and Plan No data available for this section
--- OUTSIDE RECORDS SUMMARY | 2020-06-04 20:27 | XMS REPORT | Summary of Care ---
Author Author [facility] Organization [facility] Address Unknown Phone Unavailable Encounter CARMELITA Gonzalez(FIN) [id number] Date(s): 04/16/20 - 04/17/20 [facility] [address] [address]- [phone] Vital Signs No data available for this section Problem List Condition Effective Dates Status Health Status Informan t Anxiety(Confirmed) Resolved Back pain(Confirmed) Resolved BPH with urinary Active obstruction(Confirme d) UTI (urinary tract Resolved infection)(Confirmed ) Allergies, Adverse Reactions, Alerts Substance Reaction Severity Status busPIRone Active Medications amoxicillin-clavulanate 500 mg-125 mg oral tablet 1 tab, PO, BID, X 5 day, # 10 tab, 0 Refill(s), Pharmacy: [facility]/pharmacy #[id number], 17 0.18, cm, 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
== END 2020-06-04 20:00 | disposition home or self-care (01) ==
LOC: ER 19:15
DX: G51.0 Bell's palsy (principal); K21.9 Gastro-esophageal reflux disease without esophagitis; Z98.84 Bariatric surgery status
CPT/HCPCS: 70450; 99283

== ENCOUNTER → 2021-03-26 | Day surgery (SDC) | payer BC ==
[~2021-03-26] MED LIST: ATIVAN0.5 MG PO; LIDOCAINE HCL 2% LOCAL INJ 5 ML SDV VIAL INJ ONE; MIDAZOLAM HCL 2 MG/2 ML VIAL ONE; MOBIC7.5 MG PO; OMEPRAZOLE40 MG PO; PROPOFOL IV EMULSION 10 MG/ML 20 ML VIAL ONE
[2021-03-26 08:20] VITALS: BP 129/78
== END | disposition home or self-care (01) ==
LOC: OR 07:13
PROVIDERS: ATTEND Internal Medicine Gastroenterology
DX: Z12.11 Encounter for screening for malignant neoplasm of colon (principal); K63.5 Polyp of colon; K57.30 Diverticulosis of large intestine without perforation or abscess without bleeding; K64.8 Other hemorrhoids; K21.9 Gastro-esophageal reflux disease without esophagitis; Z71.3 Dietary counseling and surveillance; G47.33 Obstructive sleep apnea (adult) (pediatric); E66.01 Morbid (severe) obesity due to excess calories; I45.10 Unspecified right bundle-branch block; F41.9 Anxiety disorder, unspecified; Z88.8 Allergy status to other drugs, medicaments and biological substances; Z01.810 Encounter for preprocedural cardiovascular examination; Z68.42 Body mass index [BMI] 45.0-49.9, adult; Z87.891 Personal history of nicotine dependence
CPT/HCPCS: 45385; 93005; J2001; J2704; 45378; J2250